=== PATIENT | male | born 1995 | race African-American/Black ===

== ENCOUNTER 2023-02-11 20:27 | Emergency (ER) | payer OTHER ==
[2023-02-11 21:08] VITALS: BP 175/153; PULSE 91; RESP 16; TEMP 97.6; BMI 27.8
[2023-02-11] MEDS ORDERED: ACETAMINOPHEN 500 MG TABLET (FP) PO ONE (21:18)
[2023-02-11] MEDS ORDERED: ACETAMINOPHEN 500 MG TABLET (FP) ONE (21:22)
== END 2023-02-11 22:01 | disposition home or self-care (01) ==
LOC: FER 20:27
DX: S46.911A Strain of unspecified muscle, fascia and tendon at shoulder and upper arm level, right arm, initial encounter (principal); X50.0XXA Overexertion from strenuous movement or load, initial encounter; Y93.67 Activity, basketball
CPT/HCPCS: 73030-TC-RT-FY; 99283-25